=== PATIENT | female | born 1965 | race Caucasian/White ===

== ENCOUNTER 2017-08-02 16:55 | Emergency (ER) | payer MEDICAID ==
[~2017-08-02] VITALS: Ht 154.9 cm; Wt 81.2 kg
[2017-08-02 16:59] VITALS: Ht 154.9 cm; Wt 81.2 kg
[2017-08-02 17:38] VITALS: BP 161/94
== END 2017-08-02 17:38 | disposition home or self-care (01) ==
LOC: ED 16:55
DX: I10 Essential (primary) hypertension (principal)

== ENCOUNTER 2017-11-23 14:54 | Emergency (ER) | payer MEDICAID ==
[~2017-11-23] VITALS: Ht 154.9 cm; Wt 77.6 kg
[2017-11-23 15:03] VITALS: BP 142/95; Ht 154.9 cm; Wt 77.6 kg
== END 2017-11-23 16:40 | disposition home or self-care (01) ==
LOC: ED 14:54
DX: J06.9 Acute upper respiratory infection, unspecified (principal); M54.6 Pain in thoracic spine; I10 Essential (primary) hypertension
CPT/HCPCS: J7613; Q0092